=== PATIENT | female | born 1950 | race Caucasian/White ===

== ENCOUNTER 2018-05-11 11:01 | Emergency (ER) | payer MEDICARE, OTHER ==
[2018-05-11] MEDS: METHYLPREDNISOLONE 125 MG INJ IV (11:38)
[2018-05-11] MEDS: DIPHENHYDRAMINE 50 MG INJ IV (11:43)
[2018-05-11] MEDS: FAMOTIDINE 20 MG INJ IV (11:43)
[2018-05-11] MEDS: SOD CHLORIDE 0.9% 1,000 ML IV (11:43)
[2018-05-11] MEDS: EPINEPHrine 1 MG INJ IM (11:44)
== END 2018-05-11 14:26 | disposition home or self-care (01) ==
LOC: E/R 11:01
DX: L50.9 Urticaria, unspecified (principal); T36.0X5A Adverse effect of penicillins, initial encounter; E11.9 Type 2 diabetes mellitus without complications; Z87.891 Personal history of nicotine dependence
CPT/HCPCS: 96372; 96374; 96375; 99284-25

== ENCOUNTER 2018-05-12 11:32 | Emergency (ER) | payer MEDICARE, OTHER ==
[2018-05-12] MEDS: DEXAMETHASONE 10 MG/ML 1 ML INJ IM (12:57)
[2018-05-12] MEDS: DIPHENHYDRAMINE 50 MG INJ IM (13:03)
== END 2018-05-12 13:39 | disposition home or self-care (01) ==
LOC: FTE 11:32
DX: L50.9 Urticaria, unspecified (principal); T36.0X5A Adverse effect of penicillins, initial encounter; T36.3X5A Adverse effect of macrolides, initial encounter; E11.9 Type 2 diabetes mellitus without complications
CPT/HCPCS: 96372; 99284-25; J1100